=== PATIENT | female | born 1980 | race African-American/Black ===

== ENCOUNTER 2016-06-12 06:47 | Emergency (ER) | payer MEDICAID ==
[~2016-06-12] VITALS: Ht 157.5 cm; Wt 77.0 kg
[2016-06-12 07:29] VITALS: BP 108/73
== END 2016-06-12 12:17 | disposition home or self-care (01) ==
LOC: ER 08:41
DX: H65.93 Unspecified nonsuppurative otitis media, bilateral (principal); J32.9 Chronic sinusitis, unspecified
CPT/HCPCS: 99283